=== PATIENT | male | born 1990 | race Two or more races ===

== ENCOUNTER → 2025-01-22 | Outpatient (CLI) | payer BC, SELFPAY ==
[2025-01-22 09:36] LABS: Misc Send Out* See Sep Rpt
--- NOTE | 2025-01-22 09:47 | EKG_ITS ---
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
[2025-01-22 10:04] LABS: Collection Type, Urine Clean Catch
[2025-01-22 10:33] LABS: Basophils % (Auto) 0 % (0-2.5); Eosinophils # (Auto) 0.1 Thou/mm3 (0.0-0.5); Eosinophils % (Auto) 2 % (0-10); Hematocrit 47.8 % (41.0-53.0); Hemoglobin 15.5 g/dL (13.5-16.0); Immature Granulocytes % (Auto) 0 % (0-0); Immature Granulocytes Auto 0.01 Thou/mm3 (0.00-0.00); Lymphocytes % (Auto) 35 % (10-50); Mean Corpuscular HGB Conc 32.4 g/dl (31.0-37.0); Mean Corpuscular Hemoglobin 27.3 pg (25.0-35.0); Mean Corpuscular Volume 84 fL (80-100); Monocytes # (Auto) 0.4 Thou/mm3 (0.0-0.8); Monocytes % (Auto) 6 % (0-12); Neutrophils # (Auto) 3.2 Thou/mm3 (1.8-7.7); Neutrophils % (Auto) 57 % (37-80); Nucleated Red Blood Cell % 0 /100 WBC (0); Platelet Count 296 Thou/mm3 (140-440); RDW Standard Deviation 41.8 fL (35.1-43.9); Red Blood Count 5.68 Miln/mm3 (4.50-5.90); White Blood Count 5.6 Thou/mm3 (3.8-10.6)
[2025-01-22 10:40] LABS: Glucose Estimated Average 117 mg/dL (80-131); Hemoglobin A1C 5.7 % Hgb (4.8-6.0)
[2025-01-22 10:43] LABS: Vitamin D 25 Hydroxy Total 15.4 ng/mL (7.3-40.2)
[2025-01-22 10:47] LABS: Alanine Aminotransferase 150 U/L (10-49); Albumin, Serum 4.9 gm/dL (3.5-5.0); Albumin/Globulin Ratio 1.6 (1.2-2.2); Alkaline Phosphatase 77 U/L (46-116); Anion Gap 10 (7-16); Aspartate Amino Transferase 93 U/L (0-34); BUN/Creatinine Ratio 13 Ratio (12-20); Bilirubin,Total 0.6 mg/dL (0.3-1.2); Blood Urea Nitrogen 12 mg/dL (9-23); Calcium 9.5 mg/dL (8.3-10.6); Calcium (Corrected) 9.5 mg/dL (8.5-10.1); Carbon Dioxide 28.1 mMol/L (20.0-31.0); Cardiac Risk Estimate 3.8 RATIO (4.0-6.7); Chloride 104 mMol/L (98-107); Cholesterol 144 mg/dL (132-200); Creatinine (Component) 0.9 mg/dL (0.6-1.3); Globulin 3.1 gm/dL (2.3-3.5); Glucose 106 mg/dL (74-106); HDL Cholesterol 38 mg/dL (40-60); LDL Cholesterol,Calculated 89 mg/dL (0-130); Osmolality,Calculated 282 (275-295); Potassium 4.1 mMol/L (3.4-5.1); Sodium 142 mMol/L (136-145); Thyroid Stimulating Hormone 1.27 uIU/mL (0.55-4.78); Triglycerides 87 mg/dL (30-150); eGFR > 60 See Note
[2025-01-22 10:57] LABS: Bilirubin,Urine Negative (Negative); Blood,Urine Negative (Negative); Clarity,Urine Clear (Clear/Hazy); Color,Urine Lt-Yellow (Lt Yel-Yel); Glucose, Urine Negative (Negative); Ketones,Urine Negative (Negative); Leukocyte Esterase,Urine Negative (Negative); Nitrite,Urine Negative (Negative); PH,Urine 6.5 (5.0-7.0); Protein,Urine Negative (Neg - Trace); RBC,Urine 1 /hpf (0-3); Specific Gravity,Urine 1.021 (1.001-1.035); Squamous Epithelial Cell,Urine < 1 /hpf (0-5); Urobilinogen,Urine Negative mg/dL (0.0-1.0); WBC,Urine 2 /hpf (0-5)
[2025-01-24 17:52] LABS: A. alternata (M6) IgE <0.10 kU/L; A. fumigatus (M3) Class 0; A. fumigatus (M3) IgE <0.10 kU/L; Alder (T2) Class 3; Alder (T2) IgE 9.47 kU/L; Bermuda Grass (G2) Class 4; Bermuda Grass (G2) IgE 33.5 kU/L; Birch (T3) Class 3; Birch (T3) IgE 12.1 kU/L; C. herbarum (M2) Class 0; C. herbarum (M2) IgE <0.10 kU/L; Cat Dander (e1) Class 0; Cat Dander (e1) IgE <0.10 kU/L; Cockroach (I6) IgE 0.24 kU/L; Common Pigweed (W14) IgE 39.3 kU/L; Common Ragweed (W1) Class 3; D. farinae (D2) Class 1; D. farinae (D2) IgE 0.37 kU/L; D. pteronyssinus (D1) Class 0/1; D. pteronyssinus (D1) IgE 0.33 kU/L; Dog Dander (E5) IgE 1.81 kU/L; Elm (T8) IgE 19.1 kU/L; Mountain Cedar (T6) Class 2; Mountain Cedar (T6) IgE 1.39 kU/L; Mouse Ur Prot (E72) IgE <0.10 kU/L; Mugwort (W6) Class 3; Mugwort (W6) IgE 3.92 kU/L; Oak White (T7) Class 2; Olive Tree (T9) Class 3; Olive Tree (T9) IgE 15.5 kU/L; P. notatum (M1) Class 0; P. notatum (M1) IgE <0.10 kU/L; Russian Thistle (W11) Class 4; Russian Thistle (W11) IgE 29.9 kU/L; Sycamore (T11) IgE 9.58 kU/L; Timothy Grass (G6) IgE >100 kU/L; White Mulberry (T70) IgE 0.18 kU/L
[2025-01-25 06:41] LABS: A. alternata (M6) Class 0; Cockroach (I6) Class 0/1; Common Pigweed (W14) Class 4; Dog Dander (E5) Class 2; Elm (T8) Class 4; IgE, Total, Serum 891 kU/L (114 OR LESS); Mouse Ur Prot (E72) Class 0; Sycamore (T11) Class 3; Timothy Grass (G6) Class 6; White Mulberry (T70) Class 0/1
== END | disposition home or self-care (01) ==
LOC: S2EX 08:59 → COPL 09:01
PROVIDERS: PCP Family Medicine; Referring Provider Family Medicine; Visit Provider Family Medicine
DX: Z00.00 Encounter for general adult medical examination without abnormal findings (principal); R21 Rash and other nonspecific skin eruption; L50.9 Urticaria, unspecified; R06.00 Dyspnea, unspecified; J30.9 Allergic rhinitis, unspecified; M08.00 Unspecified juvenile rheumatoid arthritis of unspecified site; Z13.0 Encounter for screening for diseases of the blood and blood-forming organs and certain disorders involving the immune mechanism; Z13.1 Encounter for screening for diabetes mellitus; Z13.21 Encounter for screening for nutritional disorder; Z13.29 Encounter for screening for other suspected endocrine disorder; Z83.3 Family history of diabetes mellitus
CPT/HCPCS: 36415; 80053; 80061; 81001; 82306; 82785; 83036; 84443; 85025; 86003; 87086; 93005

== ENCOUNTER → 2025-04-08 | Outpatient (CLI) | payer BC, SELFPAY ==
[2025-04-08 17:39] LABS: Basophils # (Auto) 0.0 Thou/mm3 (0.0-0.2); Basophils % (Auto) 0 % (0-2.5); Eosinophils # (Auto) 0.1 Thou/mm3 (0.0-0.5); Eosinophils % (Auto) 1 % (0-10); Hematocrit 45.1 % (41.0-53.0); Hemoglobin 14.9 g/dL (13.5-16.0); Immature Granulocytes Auto 0.02 Thou/mm3 (0.00-0.00); Lymphocytes # (Auto) 2.2 Thou/mm3 (1.0-4.8); Lymphocytes % (Auto) 36 % (10-50); Mean Corpuscular HGB Conc 33.0 g/dl (31.0-37.0); Mean Corpuscular Hemoglobin 27.2 pg (25.0-35.0); Mean Corpuscular Volume 82 fL (80-100); Monocytes # (Auto) 0.4 Thou/mm3 (0.0-0.8); Monocytes % (Auto) 7 % (0-12); Neutrophils # (Auto) 3.3 Thou/mm3 (1.8-7.7); Neutrophils % (Auto) 55 % (37-80); Nucleated Red Blood Cell # 0.00 Thou/mm3 (0.00-0.00); Nucleated Red Blood Cell % 0 /100 WBC (0); Platelet Count 299 Thou/mm3 (140-440); RDW Standard Deviation 39.9 fL (35.1-43.9); Red Blood Count 5.47 Miln/mm3 (4.50-5.90); White Blood Count 6.0 Thou/mm3 (3.8-10.6)
[2025-04-08 17:55] LABS: Glucose Estimated Average 123 mg/dL (80-131); Hemoglobin A1C 5.9 % Hgb (4.8-6.0)
[2025-04-08 17:58] LABS: Alanine Aminotransferase 427 U/L (10-49); Albumin, Serum 4.7 gm/dL (3.5-5.0); Albumin/Globulin Ratio 1.5 (1.2-2.2); Alkaline Phosphatase 106 U/L (46-116); Anion Gap 12 (7-16); Aspartate Amino Transferase 138 U/L (0-34); BUN/Creatinine Ratio 14 Ratio (12-20); Bilirubin,Total 0.7 mg/dL (0.3-1.2); Blood Urea Nitrogen 14 mg/dL (9-23); Calcium 9.7 mg/dL (8.3-10.6); Calcium (Corrected) 9.7 mg/dL (8.5-10.1); Carbon Dioxide 26.2 mMol/L (20.0-31.0); Cardiac Risk Estimate 3.1 RATIO (4.0-6.7); Chloride 107 mMol/L (98-107); Cholesterol 130 mg/dL (132-200); Creatinine (Component) 1.0 mg/dL (0.6-1.3); Free T4 (Free Thyroxine) 1.34 ng/dL (0.89-1.76); Globulin 3.1 gm/dL (2.3-3.5); Glucose 87 mg/dL (74-106); HDL Cholesterol 42 mg/dL (40-60); LDL Cholesterol,Calculated 70 mg/dL (0-130); Osmolality,Calculated 288 (275-295); Potassium 3.8 mMol/L (3.4-5.1); Sodium 145 mMol/L (136-145); Thyroid Stimulating Hormone 0.72 uIU/mL (0.55-4.78); Total Protein 7.8 gm/dL (5.7-8.2); Triglycerides 90 mg/dL (30-150); eGFR > 60 See Note
[2025-04-08 20:01] LABS: Syphilis Nonreactive (Nonreactive)
[2025-04-08 20:53] LABS: Hepatitis B Surface Antigen Non Reactive (Non React); Vitamin D 25 Hydroxy Total 38.9 ng/mL (7.3-40.2)
[2025-04-09 10:19] LABS: Chlamydia trachomatis PCR Negative (Not Detect); Neisseria Gonorrhoeae DNA PCR Negative (Not Detect); Trichomonas Negative (Negative)
[2025-04-11 17:49] LABS: HCV RNA, PCR <15 NOT DETECTED IU/mL
[2025-04-12 06:29] LABS: HCV RNA, PCR Log IU <1.18 NOT DETECTED Log IU/mL; HIV Ag/Ab, 4th Gen NON-REACTIVE
== END | disposition home or self-care (01) ==
LOC: COPL 16:20
PROVIDERS: PCP Physician Assistant; Referring Provider Physician Assistant; Visit Provider Physician Assistant
DX: Z12.89 Encounter for screening for malignant neoplasm of other sites (principal); Z11.1 Encounter for screening for respiratory tuberculosis
CPT/HCPCS: 36415; 80053; 80061; 82306; 83036; 84439; 84443; 85025; 86780; 87340; 87389; 87491; 87522; 87591; 87661

== ENCOUNTER → 2025-04-16 | Outpatient (CLI) | payer BC, SELFPAY ==
[2025-04-16 12:35] LABS: Hepatitis B Surface Ab Reactive (Immune) (Immune); Hepatitis B Surface Antigen Non Reactive (Non React); Hepatitis C Antibody Non Reactive (Non React)
[2025-04-19 06:22] LABS: Hepatitis A Antibody, Total* REACTIVE; Hepatitis B Core Ab,Total* NONREACTIVE
== END | disposition home or self-care (01) ==
LOC: COPL 10:25
PROVIDERS: PCP Physician Assistant; Referring Provider Physician Assistant; Visit Provider Physician Assistant
DX: R94.5 Abnormal results of liver function studies (principal)
CPT/HCPCS: 36415; 86704; 86706; 86708; 86803; 87340

== ENCOUNTER → 2025-05-13 | Outpatient (CLI) | payer BC, SELFPAY ==
--- NOTE | 2025-05-13 10:45 | XR_ITS ---
Examination: Abdomen sonogram, complete Date and time of exam: May 13, 2025, 1050 hours INDICATIONS: Elevated liver function tests on laboratory examination April 08, 2025.. Technique: Multiple real-time grayscale transabdominal sonographic images of the abdomen have been obtained. Findings: Multiple gallstones Gallbladder wall 0.3 cm Common bile duct 0.2 cm Pancreatic and 3.1 cm Aorta not enlarged. 15. 0.7 cm fatty infiltration Normal hepatopedal portal venous flow Patent IVC Right kidney 10.4 cm cortex 1.8 cm Kidney 10.6 cm renal cortex 2.4 cm Spleen 10.4 cm IMPRESSION: Cholelithiasis, negative for cholecystitis
== END | disposition home or self-care (01) ==
LOC: CDIM 10:35
PROVIDERS: PCP Physician Assistant; Referring Provider Physician Assistant; Visit Provider Physician Assistant
DX: K80.20 Calculus of gallbladder without cholecystitis without obstruction (principal)
CPT/HCPCS: 76700

== ENCOUNTER → 2025-06-12 | Outpatient (CLI) | payer BC, SELFPAY ==
[2025-06-12 11:15] LABS: Alanine Aminotransferase 30 U/L (10-49); Albumin, Serum 4.6 gm/dL (3.5-5.0); Alkaline Phosphatase 67 U/L (46-116); Aspartate Amino Transferase 21 U/L (0-34); Bilirubin,Direct 0.2 mg/dL (0.0-0.3); Bilirubin,Total 0.6 mg/dL (0.3-1.2); Total Protein 7.3 gm/dL (5.7-8.2)
== END | disposition home or self-care (01) ==
LOC: COPL 09:10
PROVIDERS: PCP Physician Assistant; Referring Provider Physician Assistant; Visit Provider Physician Assistant
DX: R94.5 Abnormal results of liver function studies (principal)
CPT/HCPCS: 36415; 80076